=== PATIENT | female | born 1955 | race Caucasian/White ===

== ENCOUNTER 2018-08-22 19:25 | Emergency (ER) | payer MEDICARE, OTHER ==
--- OUTSIDE RECORDS SUMMARY | 2018-08-22 19:36 | XMS REPORT | Continuity of Care Document ---
:1955 Author Organization [facility] Address [address], [place] [id number] Phone Care Team Providers Name Role Phone Jaylyn Jarquin Unavailable Unavailable Allergies, Adverse Reactions, Alerts Substance Reaction Status No Known Drug Allergies Active Medications Medication Instructions Dosage Effective Dates Status Comments (start - stop) MYCOPHENOLATE TAKE 2 TABLETS BY 1000 MG - Active MOFETIL 500 MG MOUTH TWICE DAILY TABLET diclofenac 3 % apply by topical 0.00 - Active topical gel route 2 times every day to lesion areas Lexapro 20 mg tablet take 1 tablet by 20 MG - Active oral route every day Lamictal XR 300 mg take 1 tablet by 300 MG - Active tablet,extended oral route 2 times release every day swallowing whole. Do not crush, chew and/or divide. calcitriol 0.25 mcg take 1 capsule by 0.25 MCG - Active capsule oral route 2 times every week Vitamin D3 5,000 take 1 by Oral 1 - Active unit tablet route every day Linzess 145 mcg take 1 capsule by - Active capsule oral route every day on an empty stomach at least 30 minutes before 1st meal of the day swallowing whole. Do not break, chew and/or open. omeprazole 20 mg take 1 by Oral 1 - Active tablet,delayed route 2 times every release day METOPROLOL TARTRATE take 1 tablet by Not Available - Active (unknown strength) oral route every day Dilantin Extended take 1 capsule 100 MG - Active 100 mg Cap (100MG) by oral route 3 times every day Problems Condition Effective Dates Clinical Status Comments (start - stop) Body mass index (BMI) - 27.0-27.9, adult Systemic involvement of connective tissue, unspecified Other computer terminal operator (current) drug therapy Systemic involvement of connective tissue, unspecified Other computer terminal operator (current) drug therapy Pain in rt knee Osteoarthritis Systemic involvement of connective tissue, unspecified Pain in rt knee Trochanteric bursitis of rt hip Osteoarthritis Systemic involvement of connective tissue, unspecified Other longterm (current) drug therapy Pain in right finger(s) Pain in left finger(s) Systemic involvement of connective tissue, unspecified Other intervertebral disc degeneration, thoracic region Osteoarthritis Systemic involvement of connective tissue, unspecified Other longterm (current) drug therapy Thrombocytopenia, unspecified Systemic involvement of connective tissue, unspecified Other computer terminal operator (current) drug therapy Systemic involvement of connective tissue, unspecified Other longterm (current) drug therapy Dry skin dermatitis Systemic involvement of connective tissue, unspecified Other intervertebral disc degeneration, thoracic region Systemic involvement of connective tissue, unspecified Other intervertebral disc degeneration, thoracic region Other longterm (current) drug therapy Dysuria Systemic involvement of connective tissue, unspecified Other computer terminal operator (current) drug therapy Other intervertebral disc degeneration, thoracic region Systemic involvement of connective tissue, unspecified Other longterm (current) drug therapy Systemic involvement of connective tissue, unspecified Other longterm (current) drug therapy Low back pain Systemic involvement of connective tissue, unspecified Thrombocytopenia, unspecified Other longterm (current) drug therapy Other intervertebral disc degeneration, thoracic region Systemic involvement of connective tissue, unspecified Other computer terminal operator (current) drug therapy Systemic involvement of connective tissue, unspecified Other computer terminal operator (current) drug therapy Systemic involvement of connective tissue, unspecified Other computer terminal operator (current) drug therapy Pain in left shoulder Generalized anxiety - Active Mapped from [facility] Chronic disorder Conditions table on 11/30/2014 by the ICD9 to SNOMED Bulk Mapping Utility. The mapped diagnosis code was Generalized anxiety disorder, 300.02, added by Jaspal ISIDRO, with responsible provider Jaspal Flores PA-C. Onset date 04/24/2013; last addressed on 04/24/2013. High risk drug monitoring - Active Mapped from [facility] Chronic status Conditions table on 01/31/2015 by the ICD9 to SNOMED Bulk Mapping Utility. The mapped diagnosis code was Therapeutic drug monitoring, V58.69, added by Jaspal ISIDRO, with responsible provider Jaspal ISIDRO. Onset date 10/01/2012; last addressed on 04/01/2014. Degeneration of - Active Mapped from [facility] Chronic intervertebral disc Conditions table on 11/30/2014 by the ICD9 to SNOMED Bulk Mapping Utility. The mapped diagnosis code was Degeneration of intervertebral disc, site unspecif, 722.6, added by Jaspal ISIDRO, with responsible provider Jaspal ISIDRO. Onset date 10/01/2012; last addressed on 10/01/2012. Disorder of connective - Active Mapped from [facility] Chronic tissue Conditions table on 11/30/2014 by the ICD9 to SNOMED Bulk Mapping Utility. The mapped diagnosis code was Unspecified diffuse connective tissue disease, 710.9, added by Jaspal ISIDRO, with responsible provider Jaspal ISIDRO. Onset date 10/01/2012; last addressed on 04/01/2014. Procedures Procedure Date No information Results Test Name Date and Time Measure Units Reference Range Abnormal Flag Status Comments No information Advance Directives Directive Yes / No Effective Date File Name No information Encounters Encounter Practice Location Reason(s) Diagnoses Date Provider Providers Description For Visit Copied on Encounter [facility] STRE[address] SUPERINTENDENT C [facility] 8 Jaylyn CASTILLOC, 5794 PLLC 5794 [facility], [facility], [place], [id number], [id number], [place]. tel:[phone] tel:[phone] Arthritis Arthritis Systemic [facility] involvement STREET SUPERINTENDENT C Provider: [facility] of connective 8 Jaylyn Mireles PLLC, 5794 PLLC tissue, 5794 MD, [address] [facility] unspecifiedOt [facility], her longterm [address], [address], [place], (current) [place], [place], [address]. [id number], [id number], tel:[phone] [place]. 12[address]Qjofbfb tel:[phone] tel:[phone] [facility] [phone] Provider: Patsy Cheatham, [address] [place], [address]. tel:[phone] [facility] Provider: Carlos A Lema MD, [address] [facility] [address], [place], [address]. tel:[phone] Arthritis Arthritis Systemic [facility] involvement STREET SUPERINTENDENT C Provider: Jennifer Rodriguez of [facility] 8 Jaylynestephanie Cisenrosthy PLLC, 5794 PLLC tissue, 5794 MD, 130[address] [facility], her computer terminal operator [address], [address], [place], (current) [place], [place], [place], [address]. [id number], [id number], tel:[phone] [place]. [address]Qnlhagx tel:[phone] tel:[phone] [facility] [phone] Provider: Patsy Cheatham, [address] [place], [address]. tel:[phone] ing Provider: Charmaine Moreno, [address] [place], [place] [address]y [address], [place], [address]. tel:[phone] [facility] Provider: Carlos A Lema MD, [address] [facility] [address], [place], [address]. tel:[phone] Provider: Richard Wei, [address] [place], [address]. tel:[phone] [facility] STRE[address] SUPERINTENDENT C [facility] 8 Jaylyn LaurentMinesh PLLC, 5794 PLLC [address] [facility], [address], [place], [place], [id number], [id number], [place]. tel:[phone] tel:[phone] [facility] STRE[address] SUPERINTENDENT C [facility] 8 Jaylyn LaurentMinesh PLLC, 5794 PLLC [address] [facility], [address], [place], [place], [id number], [id number], [place]. tel:[phone] tel:[phone] Arthritis Arthritis Pain in rt [facility] kneeOsteoarth STREET SUPERINTENDENT C Provider: Jennifer peck 8 Jaylyn Rios Chi PLLC, 5794 PLLC 5794 , [address] [facility], w, Road, [place], [place], [place], [address]. [id number], [id number], tel:[phone] [place]. [address]Loablau tel:[phone] tel:[phone] ing [phone] Provider: Clarke Marx MD, [address], [place], [address]. tel:[phone] ing Provider: Charmaine Moreno, [address] [facility] [address], [place], [address]. tel:[phone] ing Provider: Carlos A Lema MD, [address] [facility] [address], [place], [address]. tel:[phone] ng Provider: Richard Wei, [address] [place], [address]. tel:[phone] Arthritis Arthritis Systemic [facility] involvement STREET SUPERINTENDENT C Provider: Jennifer Sargent 8 Jaylyn Rios Chi PLLC, 5794 PLLC tissue, 57Katherine CROCKER, [address] [place] [address] [facility], in in rt [address]kw, [address], [place], kneeTrochante [place], [place], [place], [address]. [id number], of rt hip [id number], tel:[phone] [place]. [address]Fnjqfvf tel:[phone] tel:[phone] ing [phone] Provider: Clarke Marx MD, [address], [place], [address]. tel:[phone] ing Provider: Charmaine Moreno, [address] [facility] [address], [place], [address]. tel:[phone] ing Provider: Carlos A Lema MD, [address] [facility] [address], [place], [address]. tel:[phone] Provider: Richard Wei, [address] [place], [address]. tel:[phone] Arthritis Arthritis Osteoarthriti [facility] s STREET SUPERINTENDENT C [facility] 8 Jaylyn LaurentMinesh PLLC, 5794 PLLC 5794 [facility], [facility], [place], [place], [id number], [id number], [place]. tel:[phone] tel:[phone] Arthritis Arthritis Systemic [facility] involvement STREET SUPERINTENDENT C Provider: [facility] of connective 8 Jaylyn Sacha Mireles PLLC, 5794 PLLC tissue, 5794 MD, 130[address] [facility], her computer terminal operator [address], [address], [place], (current) [place], [place], [place], [place], [address]. [id number], therapyPain [id number], tel:[phone] [place] in right [place]. [address]Cnsekqc tel:[phone] finger(s)Pain tel:[phone] ing [phone] in left [id number] Provider: finger(s) Clarke Marx MD, [address], [place], [address]. tel:[phone] ing Provider: Charmaine Moreno, [address] [facility] [address], [place], [address]. tel:[phone] ing Provider: Carlos A Lema MD, [address] [facility] [address], [place], [address]. tel:[phone] ng Provider: Richard Wei, [address] [place], [address]. tel:[phone] Arthritis Arthritis Systemic Dec-2 [facility] involvement 0-201 MD Whalen. Provider: [facility] of connective 7 5794 Gabriel Chi PLLC, 5794 PLLC tissueRen MD, 130[address] [facility], her [place], Road, [place], intervertebra [place], [place], [place] [id number], [place], [address]. [id number], degeneration, [place]. tel:[phone] [place] thoracic tel:[phone] tel:[phone] regionOsteoar [phone] ing [phone] thritis Provider: Clarke Marx MD, [address] [facility], [place], [address]. tel:[phone] ing Provider: Charmaine Moreno, [address] [place], [place] [address]y [address], [place], [address]. tel:[phone] ing Provider: Carlos A Lema MD, [address] [facility] [address], [place], [address]. tel:[phone] Provider: Richard Wei, [address] [place], [address]. tel:[phone] Arthritis Arthritis Systemic Oct-0 [employer] [facility] Health involvement 9-201 JOSEPHINE Gage. Provider: [facility] of connective 7 5794 Moyock Chi PLLC, 5794 PLLC Ren licona MD, [address] [facility], her longterm [place], Road, [place], (current) [place], [place], [place] [id number], [place], [address]. [id number], therapyThromb [place]. tel:[phone] [place] ocytopenia, tel:[phone] tel:[phone] unspecified [phone] ing 455192 Provider: Clarke Marx MD, [address], [place], [address]. tel:[phone] ing Provider: Charmaine Moreno, [address] [facility] [address], [place], [address]. tel:[phone] ing Provider: Carlos A Lema MD, [address], [address]. tel:[phone] Provider: Richard Wei, [address] [place], [address]. tel:[phone] Arthritis Arthritis Systemic Aug- [employer] [facility] Health involvement PA-C Merari. Provider: [facility] of connective 7 5794 Gabriel Mireles PLLC, 5794 PLLC Ren licona MD, [address] [place] [address], [facility], [facility], [place], (current) [place], [place], drug [id number], [place], [address]. [id number], therapyBody . tel:[phone] [place] mass index tel:[phone] tel:[phone] (BMI) [phone] ing 250353 27.0-27.9, Provider: adult Clarke Marx MD, [address] [place], [address]. tel:[phone] [facility] Provider: Charmaine Moreno, [address] [facility] [address], [place], [address]. tel:[phone] ing Provider: Carlos A Lema MD, [address] [address], [place], [address]. tel:[phone] Provider: Richard Wei, [address] [place], [address]. tel:[phone] Arthritis Arthritis Systemic January- [facility] involvement PA-C Provider: Associates [facility] of connective 7 Denise Michel Moyock Chi PLLC, 5794 PLLC monae, Darryn CROCKER, [address] [facility], her computer terminal operator [place], [address], [place], (current) [place], [place], [place], [address]. [id number], therapyDry [id number], tel:[phone] [place] skin [place]. [address]Yusctdq tel:[phone] dermatitis tel:[phone] ing [phone] Provider: Clarke Marx, [address], [place], [address]. tel:[phone] ing Provider: Charmaine Moreno, [address] [facility] [address], [place], [address]. tel:[phone] ing Provider: Carlos A Lema, [facility] [address], [place], [place], [id number]. tel:[phone] Provider: Richard Wei, [address] [place] [address], [address]. tel:[phone] Arthritis Arthritis Systemic Mar-2 [facility] involvement 0-201 MD Whalen. Provider: [facility] of connective 7 5794 Gabriel Chi PLLC, 5794 PLLC tissue, Ren CROCKER, [address] [facility], [facility], her [place], Road, [place], intervertebra [place], [place], [place] [id number], [place], [address]. [id number], degeneration, [place]. tel:[phone] [place] thoracic tel:[phone] tel:[phone] region [phone] [facility] [id number] Provider: Clarke Marx, [address], [place], [address]. tel:[phone] ing Provider: Charmaine Moreno, [address] [facility] [address], [place], [address]. tel:[phone] ing Provider: Carlos A Lema, [facility] [address], [place], [place], [id number]. tel:[phone] ng Provider: Richard Wei, [address] [place], [address]. tel:[phone] Arthritis Arthritis Systemic Sajan-0 Sandra [employer] [facility] Health involvement 2-201 JOSEPHINE Shay. Provider: Jennifer Rodriguez of connective 7 5794 Gabriel Chi PLLC, 5794 PLLC tissue, Ren CROCKER, 130[address] [facility], [facility], her [place], Road, [place], intervertebra [place], [place], [place] [id number], [place], [address]. [id number], degeneration, [place]. tel:[phone] [place] thoracic tel:[phone] tel:[phone] regionOther [phone] ing 170931 longterm Provider: (current) Clarke Marx, [address] therapyDysuri [address], [place], [address]. tel:[phone] ing Provider: Charmaine Moreno, [address] [place], [place] [address]y [address], [place], [address]. tel:[phone] ing Provider: Carlos A Lema, [facility] [address], [place], [place], [id number]. tel:[phone] Provider: Richard Wei, [address] [place], [address]. tel:[phone] Arthritis Arthritis Systemic Jun- Sandra Consulting [facility] Health involvement 7-201 JOSEPHINE Shay. Provider: Jennifer Rodriguez of connective 6 5794 [facility] Chi [facility], 5794 PLLC Ren licona MD, [address] [facility], [facility], her longterm [place], Road, [place], (current) [place], [place], [place] [id number], [place], [address]. [id number], therapyOther [place]. tel:[phone] [place] intervertebra tel:[phone] tel:[phone] l disc [phone] ing 983120 degeneration, Provider: thoracic Clarke gauthier Malak, [address], [place], [address]. tel:[phone] ing Provider: Charmaine Moreno, [address] [facility] [address], [place], [address]. tel:[phone] ing Provider: Carlos A Lema, [facility] [address] H, [place], [place], [id number]. tel:[phone] Provider: Richard Wei, [address] [place], [address]. tel:[phone] Arthritis Arthritis Systemic Apr-0 [employer] [facility] Health involvement 1 JOSEPHINE Shay. Provider: Associates Associates of connective 6 5794 Gabriel [facility], 5794 PLLC tissue, Ren CROCKER, [address] [place] [address], her computer terminal operator [place], [facility], [place], (current) [place], [place], [place] [id number], [place], [address]. [id number], . tel:[phone] [place] tel:[phone] tel:[phone] ing [id number] Provider: Clarke Marx, [address], [place], [address]. tel:[phone] ing Provider: Charmaine Moreno, [address] [facility] [address], [place], [address]. tel:[phone] ing Provider: Carlos A Lema, [facility] 2 H, [place], [place], [id number]. tel:[phone] Provider: Richard Wei, [address] [place], [address]. tel:[phone] Arthritis Arthritis Systemic January- [employer] [facility] Health involvement 0201 JOSEPHINE Shay. Provider: Associates Associates of connective 6 5794 Gabriel Chi PLLC, 5794 PLLC tissueRen MD, 1304 [facility], her longterm [place], [facility], [place], (current) [place], [place], [place] [id number], [place], [address]. [id number], therapyLow [place]. tel:[phone] [place] back pain tel:[phone] tel:[phone] ing 149871 Provider: Clarke Marx, [address] [facility], [place], [address]. tel:[phone] ing Provider: Charmaine Moreno, [address] [facility] [address], [place], [address]. tel:[phone] ing Provider: Carlos A Lema, [facility] [address] H, [place], [place], [id number]. tel:[phone] Provider: Richard Wei, [address] [place] [address], [address]. tel:[phone] Arthritis Arthritis Systemic Mar-2 [facility] involvement 3-201 JOSEPHNIE Gage. Provider: Associates Associates of connective 6 5794 M[facility]ock Chi PLLC, 5794 PLLC tissue, [facility] CROCKER, 130[address] [facility], [facility], [facility], [facility], [place], a, [place], [place], [place], unspecifiedOt [id number], [place], [address]. [id number], her computer terminal operator [place]. tel:[phone] [place] (current) tel:+ [phone] tel:[phone] drug therapy [phone] ing 188143 Provider: Clarke Marx, [address] [facility], [place], [address]. tel:[phone] ing Provider: Charmaine Moreno, [address] [facility] [address], [place], [address]. tel:[phone] ing Provider: Carlos A Lema, [facility] [address], [place], [place], [id number]. tel:[phone] Provider: Richard Wei, [address] [place], [address]. tel:[phone] Arthritis Arthritis Other Sajan-2 [facility] Health intervertebra 1 JOSEPHINE Gage. Provider: Jennifer Rodriguez l disc 6 5794 Gabriel [facility], 5794 PLLC Ren osborne MD, 1304 [facility] thoracic [place], [facility], regionSystemi [place], Road, [place], c involvement [place], [place], [place], [place] connective [id number], [place], [address]. [id number], tissue, [place]. tel:[phone] US unspecifiedOt tel:[phone] tel:[phone] her longterm [phone] ing 617454 (current) Provider: drug therapy Clarke Marx, [address], [place], [address]. tel:[phone] ing Provider: Charmaine Moreno, [address] [place], [place] [address]y [address], [place], [address]. tel:[phone] ing Provider: Carlos A Lema, [facility] [address], [place], [place], [id number]. tel:[phone] Provider: Richard Wei, [address] [place], [address]. tel:[phone] Arthritis Arthritis Systemic Jul- [facility] Consulting [facility] Health involvement 0-201 JOSEPHINE Gage. Provider: Jennifer Rodriguez of connective 5 5794 [facility], 5794 PLLC Ren licona MD, [address] [facility] [place], [facility], her computer terminal operator [place], [facility], [place], (current) [place], [place], [place], drug [place] [id number], [place], [address]. [id number], [place]. tel:[phone] [place] tel:[phone] tel:[phone] ing 695879 Provider: Clarke Marx, [address], [place], [address]. tel:[phone] ing Provider: Charmaine Moreno, [address] [facility] [address], [place], [address]. tel:[phone] ing Provider: Carlos A Lema, [facility] [address], [place], [place], [id number]. tel:[phone] ng Provider: Richard Wei, [address] [place], [address]. tel:[phone] Arthritis Arthritis Systemic Oct- [employer] [facility] involvement 5 JOSEPHINE Gage. Provider: Jennifer Rodriguez of [facility] 5 5794 Gabriel Mireles PLL[facility], 5794 PLLC tissue, Ren CROCKER, [address] [place] [address], her computer terminal operator [place], [facility], [place], (current) [place], [place], [place] [id number], [place], [address]. [id number], therapyPain [place]. tel:[phone] [place] in left tel:[phone] tel:[phone] shoulder [phone] ing 578393 Provider: Clarke Marx, [address] [facility], [place], [address]. tel:[phone] ing Provider: Charmaine Moreno, [address] [facility] [address], [place], [address]. tel:[phone] ing Provider: Carlos A Lema, [facility] [address], [place], [place], [id number]. tel:[phone] ng Provider: Richard Wei, [address] [place], [address]. tel:[phone] Arthritis Ar[facility]ritis [facility] JOSEPHINE Gage. Provider: Associates Associates 5 5794 Gabriel Cisnerosthy PLLC, 5794 PLLC Ren CROCKER, [address] [place] [address], [facility], [place], [facility], [place], [place], [place], [id number], [place], [address]. [id number], . tel:[phone] [place] tel:[phone] tel:[phone] ing 395414 Provider: Clarke Marx, [address] [place] [address], [place], [address]. tel:[phone] ing Provider: Charmaine Moreno, [address] [facility] [address], [place], [address]. tel:[phone] ing Provider: Carlos A Lema, [facility] [address], [place], [place], [id number]. tel:[phone] Provider: Richard Wei, [address] [place] [address], [address]. tel:[phone] Arthritis Arthritis Oct-1 [facility] 0-201 PA-C Merari. Provider: [facility] 4 [address] Gabriel Mireles [facility], 5794 PLL Ren CROCKER, [address] [place] [address], [place], [place], [id number], [place], [address]. [id number], . tel:[phone] tel:[phone] tel:[phone] ing [phone] Provider: Clarke Marx, [address] [place] [address], [place], [address]. tel:[phone] ing Provider: Charmaine Moreno, [address] [facility] [address], [place], [address]. tel:[phone] ing Provider: Carlos A Lema, [facility] [address], [place], [place], [id number]. tel:[phone] Provider: Richard Wei, [address] [place], [address]. tel:[phone] Arthritis Arthritis Oct-1 [facility] [address] SUPERINTENDENT-C Provider: [facility] 3 Carol. [facility], 5[address] [facility] Nephrology [facility], Hypertension [place], [place], [facility] [address] [place], [place], [place] , [place], [id number], [place], [id number], [place], [address]. [place] tel:[phone] tel:[phone] tel:[phone] [id number] ing Provider: Clarke Marx, [address] [facility], [place], [address]. tel:[phone] ing Provider: Charmaine Moreno, [address] [facility] [address], [place], [address]. tel:[phone] ing Provider: Carlos A Lema, [facility] [address], [place], [place], [id number]. tel:[phone] Provider: Richard Wei, [address] [place] [address], [address]. tel:[phone] Arthritis Arthritis January-0 [facility] 3-201 JOSEPHINE Shay. Provider: [facility] 3 5794 [facility], 5794 [facility] Nephrology [facility], Hypertension [place], [place], [facility] [address] [place], [place], [place] , [place], [id number], [place], [id number], [place], [address]. [place] tel:[phone] tel:[phone] tel:[phone] [id number] ing Provider: Clarke Marx, [address] [facility], [place], [address]. tel:[phone] ing Provider: Charmaine Moreno, [address] [facility] [address], [place], [address]. tel:[phone] ing Provider: Carlos A Lema, [facility] [address], [place], [place], [id number]. tel:[phone] ng Provider: Richard Wei, [address] [place], [address]. tel:[phone] Arthritis Arthritis [facility] 8-201 MD Whalen. Provider: [facility] 2 5794 Richard Wei, [facility], [address], [place], [place], [place], [facility], [place], [address]. [place], [id number], tel:[phone], . [address] tel:[phone] tel:[phone] Arthritis Arthritis [facility] 1- JOSEPHINE Gage. Provider: Jennifer Rodriguez 1 5794 [facility], 5794 PLLC [facility] 6 [facility], [place], [place], [place], [facility], [place], [address]. [place], [id number], tel:[phone], . [address] [place] tel:[phone] tel:[phone] Arthritis Arthritis [facility] 6 JOSEPHINE Gage. Provider: Jennifer Rodriguez 1 5794 [facility], [address], [place], [place], [place], [facility], [place], [address]. [place], [id number], tel:[phone], . [address] tel:[phone] tel:[phone] Family History Family Member Diagnosis Age At Onset Grandmother Father Immunizations Vaccine Date Status Comments Never had Zoster administered Source: New Immunization Record Refused Flu vaccine administered Source: New Immunization Record Refused Flu vaccine administered Source: New Immunization Record Never had administered Source: Source Unspecified Payers Payer name Insurance type Covered green party ID Authorization(s) Medicare MB [id number] [employer] No Referral Required [id number] Social History Type Description Quantity Date Captured Comments Sex Female Vital Signs Date / Height Weight BMI Pulse Blood Temperature Respiratory Body Head BMI Pulse Inhaled Time: Rate Pressure Rate Surface Circumference percentile Ox Ox Area No information Chief Complaint And Reason For Visit No information Reason For Referral Reason For Referral No information Plan Of Treatment Date Type Action Status Goal Visual Field Exam. Due on due Goal Visual Field Exam. Due on due Goal Visual Field Exam. Due on due Goal Visual Field Exam. Due on due Goal Visual Field Exam. Due on due Goal Visual Field Exam. Due on due Goal Visual Field Exam. Due on due Goal Visual Field Exam. Due on due Goal Visual Field Exam. Due on due Goal Visual Field Exam. Due on due Goal Lifestyle education regarding diet completed Goal Visual Field Exam. Due on due Goal Visual Field Exam. Due on due Goal Visual Field Exam. Due on due Goal Visual Field Exam. Due on due Goal Visual Field Exam. Due on due Goal Visual Field Exam. Due on due Goal Visual Field Exam. Due on due Goal Visual Field Exam. Due on due Goal Visual Field Exam. Due on due Goal Visual Field Exam. Due on due Goal Visual Field Exam. Due on due Goal Visual Field Exam. Due on due Referral Ordered: ordered *KNEE X-RAY, 1 OR 2 VIEWS Referral Ordered: ordered FLUOROSCOPE ASP/INJ Right hip Appointment date/timeframe: 11/06/2017 Referral Ordered: ordered *THORACIC SPINE X-RAY, 3 VIEWS Referral Ordered: ordered *SHOULDER X-RAY, COMPLETE, 2 VIEW History Of Present Illness Encounter Date Complaint History Of Present Illness No information Functional Status Date Functional Assessment No information Medications Administered Medication Instructions Dosage Effective Dates (start - stop) Status Comments No information Instructions Date Instruction Additional Information Post injection care reviewed, instructions given Avoid sun and use high SPF sunblock Discussed importance of holding DMARDs/ biologics if patient develops an infection and to notify the treating physician Lifestyle education regarding diet Related to Body mass index ( BMI) 27.0-27.9, adult Discussed importance of holding DMARDs/ biologics if patient develops an infection and to notify the treating physician Stretching Labs ordered to check disease activity. Reviewed importance of compliance/adherence to medications prescribed Avoid live vaccines Risks/benefits of medications reviewed Labs ordered to check blood counts, liver and kidney functions to monitor safety of medication. Discussed / Reviewed Labs Patient plan printed and given along with recommendations call if symptoms worsen maintain adequate water intake every day Reviewed importance of compliance/adherence to medications prescribed Avoid live vaccines Risks/benefits of medications reviewed Discussed importance of holding DMARDs/ biologics if patient develops an infection and to notify the treating physician Labs ordered to check disease activity. Labs ordered to check blood counts, liver and kidney functions to monitor safety of medication. Discussed / Reviewed Labs Patient plan printed and given along with recommendations call if symptoms worsen maintain adequate water intake every day Reviewed importance of compliance/adherence to medications prescribed Avoid live vaccines Risks/benefits of medications reviewed Discussed importance of holding DMARDs/ biologics if patient develops an infection and to notify the treating physician Labs ordered to check disease activity. Labs ordered to check blood counts, liver and kidney functions to monitor safety of medication. Discussed / Reviewed Labs Patient plan printed and given along with recommendations call if symptoms worsen maintain adequate water intake every day Discussed / Reviewed Labs Patient plan printed and given along with recommendations call if symptoms worsen maintain adequate water intake every day Reviewed importance of compliance/adherence to medications prescribed Diet: avoid alcohol Avoid live vaccines Risks/benefits of medications reviewed Avoid sun and use high SPF sunblock Discussed importance of holding DMARDs/ biologics if patient develops an infection and to notify the treating physician Stretching Labs ordered to check disease activity. Labs ordered to check blood counts, liver and kidney functions to monitor safety of medication. Discussed importance of holding DMARDs/ biologics if patient develops an infection and to notify the treating physician Avoid live vaccines Avoid sun and use high SPF sunblock Discussed importance of holding DMARDs/ biologics if patient develops an infection and to notify the treating physician Reviewed importance of compliance/adherence to medications prescribed Risks/benefits of medications reviewed Reviewed importance of compliance/adherence to medications prescribed Risks/benefits of medications reviewed Discussed importance of holding DMARDs/ biologics if patient develops an infection and to notify the treating physician
[2018-08-22 19:52] VITALS: BP 136/75
--- NOTE | 2018-08-22 20:07 | UC ---
UC General HPI - HPI Summary HPI Summary: PT C/O 3 DAY HX INCREASING L LOWER ABDOMINAL PAIN THAT RADIATES INTO HER L BACK. + NAUSEA, FEVER AND LOSS OF APPETITE. WORSE WITH MOVEMENT. NO DIARRHEA. NO HX IBD OR DIVERTICULAR DZ. SOME URINARY FREQUENCY. HX HEMATURIA. - History of Current Complaint Chief Complaint: UCGeneralIllness Stated Complaint: ABDOMINAL PAIN/FEVER/CHILLS Time Seen by Provider: 08/22/18 19:57 Hx Obtained From: Patient, Family/Web Interface Developer Onset/Duration: Gradual Onset Timing: Constant Pain Intensity: 0 Aggravating: ANY MOVEMENT Associated Signs & Symptoms: Positive: Abdominal Pain, Fever, Nausea. Negative : Diarrhea, Vomiting - Allergy/Home Medications Allergies/Adverse Reactions: Allergies Allergy/AdvReac Type Severity Reaction Status Date / Time amoxicillin Allergy Rash Verified 08/22/18 19:44 sulfamethoxazole Allergy Hives Verified 08/22/18 19:44 [From Bactrim] trimethoprim [From Bactrim] Allergy Hives Verified 08/22/18 19:44 avoids NSAIDS Allergy Unknown Uncoded 08/22/18 19:44 Reaction Details Home Medications: Home Medications Escitalopram (NF) [Lexapro 5 mg (NF)] 1 tab DAILY 08/22/18 [History Confirmed ] Gabapentin CAP(*) [Neurontin 300 CAP(*)] 1 tab TID 08/22/18 [History Confirmed 08/22/18] Linaclotide (NF) [Linzess (NF)] 1 tab DAILY 08/22/18 [History Confirmed 08/22/18 ] Omeprazole CAP* [Prilosec CAP* 20 MG] 1 tab DAILY 08/22/18 [History Confirmed ] Polyethylene Glycol 3350* [Miralax*] 1 packet DAILY 08/22/18 [History Confirmed 08/22/18] lamoTRIgine TAB(*) [Lamictal TAB(*)] 300 mg BID 08/22/18 [History Confirmed ] PMH/Surg Hx/FS Hx/Imm Hx - Additional Past Medical History Additional PMH: Lupus, pain from Lupus, One kidney from , 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 Cardiovascular History: Hypertension GI/ History: Gastroesophageal Reflux Neurological History: Seizures - Surgical History Surgical History: Yes Surgery Procedure, Year, and Place: Craniotomy for miningioma, 2009, [place] 1990 - Family History Known Family History: Positive: Hypertension - Social History Alcohol Use: None Substance Use Type: None Smoking Status (MU): Never Smoked Tobacco - Immunization History Most Recent Influenza Vaccination: Not the Season Vaccination Up to Date: Yes Review of Systems All Other Systems Reviewed And Are Negative: Yes Constitutional: Positive: Fever Skin: Positive: Negative Eyes: Positive: Negative ENT: Positive: Negative Respiratory: Positive: Negative Cardiovascular: Positive: Negative Gastrointestinal: Positive: Abdominal Pain, Nausea Genitourinary: Positive: Hematuria - microscopic, Frequency Motor: Positive: Negative Neurovascular: Positive: Negative Musculoskeletal: Positive: Arthralgia - chronic Neurological: Positive: Negative Psychological: Positive: Negative Physical Exam Triage Information Reviewed: Yes Appearance: Ill-Appearing - but non toxic Vital Signs: Initial Vital Signs Temp 101.1 F 08/22/18 19:48 Pulse 103 08/22/18 19:48 Resp 16 08/22/18 19:48 BP 136/75 08/22/18 19:48 Pulse Ox 99 08/22/18 19:48 Vital Signs Reviewed: Yes Eyes: Positive: Conjunctiva Clear ENT: Positive: Pharynx normal. Negative: Nasal congestion Neck: Positive: Supple, Nontender, No Lymphadenopathy Respiratory: Positive: Lungs clear, Normal breath sounds Cardiovascular: Positive: RRR, No Murmur. Negative: Tachycardia Abdomen Description: Positive: Other: - Hypoactive BS. No distension. Soft. Tender in LLQ with guarding and rebound on deep palpation. No mass or HSM. No CVA tenderness Musculoskeletal: Positive: ROM Intact Neurological: Positive: Alert Psychological: Positive: Age Appropriate Behavior Skin Exam: Normal Course/Dx - Course Course Of Treatment: [facility] ER CALLED. HX AND PE D/W DR MADERA INCLUDING LLQ ABDOMINAL PAIN WITH PERITONEAL SIGNS, FEVER, NAUSEA AND ANOREXIA. ALSO ADVISED OF ONLY 1 KIDNEY AND IT HAS 40% FUNCTION. - Differential Dx - Multi-Symptom Differential Diagnoses: Other - bowel and renal pathology. most concerning for possible diverticular dz. - Diagnoses Provider Diagnosis: Acute abdominal pain in left lower quadrant Discharge - Sign-Out/Discharge Documenting (check all that apply): Patient Departure All imaging exams completed and their final reports reviewed: No Studies - Discharge Plan Condition: Stable Disposition: TRANS [facility] Referrals: Disha Pringle MD [Primary Care Provider] - Additional Instructions: LEAVE HERE AND GO DIRECTLY TO THE [facility] ER DISCUSSED - Billing Disposition and Condition Condition: STABLE Disposition: Trans Higher Lvl of Care Fac
== END 2018-08-22 20:33 | disposition short-term general hospital (02) ==
LOC: UCCORT 19:25
DX: R10.32 Left lower quadrant pain (principal); Z88.0 Allergy status to penicillin; Z88.1 Allergy status to other antibiotic agents
CPT/HCPCS: 81003; 87077; 87086; 99212; G0463

== ENCOUNTER 2019-03-19 10:22 | Emergency (ER) | payer MEDICARE, OTHER ==
[2019-03-19 10:43] VITALS: BP 127/74
--- NOTE | 2019-03-19 11:13 | UC ---
Respiratory Complaint HPI - HPI Summary HPI Summary: cough x 10 days cough is dry and harsh , worse at night and when lying down nothing makes it better no fever, no chills, + body aches, has sore throat due to coughing no runny nose, no wheezing or sob - History of Current Complaint Chief Complaint: UCGeneralIllness Stated Complaint: ST, COUGH Time Seen by Provider: 03/19/19 10:43 Hx Obtained From: Patient Onset/Duration: Gradual Onset, Lasting Days - 10, Still Present Timing: Constant Severity Initially: Moderate Severity Currently: Moderate Pain Intensity: 0 Character: Cough: Nonproductive Aggravating Factors: Exertion, Deep Breaths, Recumbent Position Alleviating Factors: Nothing Associated Signs And Symptoms: Negative: Dyspnea, Fever, Chills, Pleuritic Chest Pain, Wheezing, Hemoptysis, Dizziness, Calf Pain, Calf Swelling, Edema, URI, Nasal Congestion - Allergies/Home Medications Allergies/Adverse Reactions: Allergies Allergy/AdvReac Type Severity Reaction Status Date / Time amoxicillin Allergy Rash Verified 08/22/18 19:44 sulfamethoxazole Allergy Hives Verified 08/22/18 19:44 [From Bactrim] trimethoprim [From Bactrim] Allergy Hives Verified 08/22/18 19:44 avoids NSAIDS Allergy Unknown Uncoded 08/22/18 19:44 Reaction Details PMH/Surg Hx/FS Hx/Imm Hx - Additional Past Medical History Additional PMH: SEIZURES DEPRESSION/ANXIETY lupus kidney disease Cardiovascular History: Hypertension - Surgical History Surgical History: Yes Surgery Procedure, Year, and Place: Craniotomy for miningioma, 2008, [place] [facility], 1981 1990 - Family History Known Family History: Positive: Hypertension - Social History Alcohol Use: None Substance Use Type: None Smoking Status (MU): Never Smoked Tobacco - Immunization History Most Recent Influenza Vaccination: Not the Season Vaccination Up to Date: Yes Review of Systems All Other Systems Reviewed And Are Negative: Yes Constitutional: Positive: Negative Skin: Positive: Negative Eyes: Positive: Negative ENT: Positive: Sore Throat Respiratory: Positive: Cough Cardiovascular: Positive: Negative Is Patient Immunocompromised?: No Physical Exam Triage Information Reviewed: Yes Appearance: Well-Appearing, No Pain Distress, Well-Nourished Vital Signs: Initial Vital Signs Temp 98.5 F 03/19/19 10:36 Pulse 77 06/27/19 10:36 Resp 18 03/19/19 10:36 BP 127/74 03/19/19 10:36 Pulse Ox 99 03/19/19 10:36 Vital Signs Reviewed: Yes Eye Exam: Normal Eyes: Positive: Conjunctiva Clear ENT: Positive: Normal ENT inspection, Hearing grossly normal, Pharynx normal Neck: Positive: Supple, Nontender, No Lymphadenopathy Respiratory: Positive: Chest non-tender, Lungs clear, Normal breath sounds Cardiovascular: Positive: RRR, No Murmur, Pulses Normal Skin Exam: Normal Respiratory Course/Dx - Differential Dx/Diagnosis Provider Diagnosis: Bronchitis Discharge - Sign-Out/Discharge Documenting (check all that apply): Patient Departure All imaging exams completed and their final reports reviewed: No Studies - Discharge Plan Condition: Stable Disposition: HOME Prescriptions: Codeine Phosphate/Guaifenesin [Cheratussin AC] 10 ml PO Q8H PRN #120 ml MDD 30 ml PRN Reason: Cough DOXYcycline CAP(*) [DOXYcycline 100MG CAP(*)] 100 mg PO BID #20 cap Patient Education Materials: Acute Bronchitis (ED) Referrals: Disha Pringle MD [Primary Care Provider] - If Needed - Billing Disposition and Condition Condition: STABLE Disposition: Home
== END 2019-03-19 11:01 | disposition home or self-care (01) ==
LOC: UCCORT 10:22
DX: J40 Bronchitis, not specified as acute or chronic (principal); Z88.0 Allergy status to penicillin; Z88.1 Allergy status to other antibiotic agents; I10 Essential (primary) hypertension
CPT/HCPCS: 99212; G0463

== ENCOUNTER 2019-11-23 16:28 | Emergency (ER) | payer MEDICARE, OTHER ==
--- OUTSIDE RECORDS SUMMARY | 2019-11-23 18:13 | XMS REPORT | Continuity of Care Document ---
:1955 External Reference #:[id number] Author Name Peyton Mcmahon, Address [address] [place] [address] Care Team Providers Name Role Phone Gabriel Mireles M.D. 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 Other pancytopenia Peyton Mcmahon DO Onset: 02/11/2017 Systemic lupus erythematosus Peyton Mcmahon DO Onset: 10/28/2019 Anemia Peyton Mcmahon DO Onset: 10/28/2019 Heartburn Jeremías Valenzuela MD Onset: 06/12/2017 Screening for malignant neoplasm of colon Jeremías Valenzuela MD Onset: 06/12/2017 Constipation Jeremías Valenzuela MD Onset: 06/12/2017 Social History Type Date Description Comments Sex Unknown Smokeless Tobacco Never Used Smokeless Tobacco ETOH Use Denies alcohol use Tobacco Use Start: Unknown Patient denies history of smoking Recreational Drug Use Denies Drug Use Smoking Status Reviewed: 10/28/19 Patient denies history of smoking Allergies, Adverse Reactions, Alerts Active Allergies Reaction Severity Comments Date Amoxil Rash 02/11/2017 Medications Active Medications SIG Qnty Indications Ordering Provider Date Mycophenolate Mofetil 3 caps twice a Unknown 250mg day Capsules Metoprolol Succinate ER 1 by mouth every Unknown day 25mg Tablets ER 24HR Calcitriol 1 by mouth every Unknown 0.25mcg Capsules day Dilantin 3 tabs every day Unknown 100mg Capsules Vitamin D3 1 by mouth every Unknown 2000Unit day Capsules Cellcept 3 tabs twice a Unknown 250mg Capsules day Gabapentin Unknown 300mg Capsules Escitalopram Oxalate TK 1 T PO qd Unknown 20mg Tablets Lamotrigine Take 1 Tablet By Unknown 100mg Tablets Mouth Twice A Day Medications Administered in Office Medication SIG Qnty Indications Ordering Provider Date Vitamin B12 Injection 1000 Oncology Nurse 03/04/2017 mcg/Ml Injection Vitamin B12 Injection 1000 Peyton Mcmahon DO 02/19/2017 mcg/Ml Injection Immunizations Description No Information Available Vital Signs Date Vital Result Comment 10/28/2019 3:39pm BP Systolic 108 mmHg BP Diastolic 78 mmHg Body Temperature 99.5 F Heart Rate 81 /min Respiratory Rate 20 /min Height 65 inches 5'5" Weight 170.00 lb BMI (Body Mass Index) 28.3 kg/m2 BSA (Body Surface Area) 1.85 m2 Hume body weight in kilograms 57 kg O2 % BldC Oximetry 98 % 06/12/2017 9:32am BP Systolic Sitting Left Arm 130 mmHg BP Diastolic Sitting Left Arm 84 mmHg Heart Rate 58 /min Respiratory Rate 16 /min Height 65 inches 5'5" Weight 169.00 lb BMI (Body Mass Index) 28.1 kg/m2 BSA (Body Surface Area) 1.84 m2 Hume body weight in kilograms 57 kg Results Test Acquired Date Facility Test Result H/L Range Note CBC 10/28/2019 [facility] White Blood 4.2 K/uL Normal 3.1-10.7 1 W/Automated [address] [place] [address] [phone] Red Blood Count 3.47 M/uL Low 3.90-5.40 Hemoglobin 10.6 gm/dL Low 11.6-15.8 Hematocrit 32.1 % Low 36.0-46.1 Mean Cell Volume 92.5 fl Normal 80.9-99.0 Mean Corpuscular HGB 30.5 pg Normal 25.9-32.7 Mean Corpuscular HGB Conc 33.0 g/dL Normal 30.8-34.3 Platelet Count 150 K/uL Low 155-360 Red Cell Distri Width SD 43.0 fl Normal 36-47 Red Cell Distri Width %CV 12.8 % Normal 11.7-14.4 Mean Platelet Volume 9.4 fl Normal 8.9-12.4 Neut% 61.4 % Normal 40.4-72.8 Lymph % 26.7 % Normal 20.0-42.0 Early % 9.7 % Normal 4.3-13.2 Eo% 1.2 % Normal 0.0-6.6 Bas% 0.5 % Normal 0.0-1.1 Immature Grans 0.5 % Normal 0.0-5.0 NRBC % 0.0 /100WBC < 10/ 100 WBC Neut# 2.61 K/uL Normal 1.8-7.0 Lymph # 1.13 K/uL Normal 1.0-4.0 Early # 0.41 K/uL Normal 0.3-0.9 Eos # 0.05 K/uL Normal 0.0-0.5 Baso # 0.02 K/uL Normal 0.0-0.1 Immature Grans Absolute 0.02 K/uL NRBC # 0.00 K/uL Comprehensive 10/28/2019 [facility] Glucose 85 mg/dL Normal 74-106 Metabolic Panel [address] [place] [address] [phone] BUN 17 mg/dL Normal 7-18 Creatinine 1.5 mg/dL High 0.6-1.3 Glom Filtration Rate, Estimate 37 mL/min >60 If 45 mL/min >60 2 BUN/Creat 11.3 ratio Sodium 133 mmol/L Low 136-145 Potassium 4.4 mmol/L Normal 3.5-5.1 Chloride 102 mmol/L Normal 98-107 Carbon Dioxide 29 mmol/L Normal 21-32 Anion Gap 2 mEq/L Low 8-16 Calcium 8.8 mg/dL Normal 8.5-10.1 Total Protein 7.2 g/dL Normal 6.4-8.2 Albumin 3.9 g/dL Normal 3.4-5.0 Globulin 3.3 g/dL Normal 1.9-4.3 Alb/Glob 1.2 ratio Bilirubin,Total 0.3 mg/dL Normal 0.2-1.0 Sgot/Ast 19 U/L Normal 15-37 SGPT/Alt 14 U/L Normal 12-78 Alkaline Phosphatase 126 U/L High 45-117 Iron-Tibc-%Sat 10/28/2019 [facility] Serum Iron 89 g/dL Normal 50-[address] [place] [address] [phone] Total Iron Binding Capacity 241 g/dL Low 250-450 Transferrin %Saturation 37 % Normal 12-57 Laboratory test 10/28/2019 [facility] Ferritin 63 ng/mL Normal 8-[address] [place] [address] [phone] Vitamin B12 And 10/28/2019 [facility] Vitamin B12 296 pg/mL Normal 193-[address] [place] [address] [phone] Folic Acid 8.1 ng/mL Normal 3.1-17.5 Laboratory test 10/28/2019 [facility] Vitamin 29.6 Low 30.0-100.[address] D,25-Hydroxy ng/[place] [address] [phone] Immunoglobulins 10/28/2019 [facility] Immunoglobulin [phone] A/G/M, QN, Ser [address] G,Quant,Serum mg/[place] [address] [phone] Immunoglobulin A 59 mg/dL Low 87-352 Immunoglobulin M 31 mg/dL 26-217 4 Reticulocyte 10/28/2019 [facility] Retic 36.2 pg Normal 27.9-37.0 Count,Automated [address] [place] [address] [phone] Retic % 1.5 % Normal 0.5-1.8 Absolute Retic 53 K/uL Normal 24-84 Immature Retic Fraction 7.2 % Normal 2.9-15.5 Laboratory test 10/28/2019 [facility] Thyroid 1.32 Normal 0.30-4.[address] Stim uIU/[place] [address] Hormone [phone] D61.818 E61.1 E53.9 E03.9 2 Note: Persistent reduction for 3 months or more in an eGFR <60 mL/min/1.73 m2 defines CKD. Patients with eGFR values >/=60 mL/min/1.73 m2 may also have CKD if evidence of persistent proteinuria is present. The original MDRD equation for estimated GFR is not valid for patients less than 18 years of age. Additional information may be found at www.kdoqi.org. 3 Vitamin D deficiency has been defined by the [place] [employer] and an Endocrine Society practice guideline as a level of serum 25-OH vitamin D less than 20 ng/mL (1,2). The Endocrine Society went on to further define vitamin D insufficiency as a level between 21 and 29 ng/mL (2). 1. IOM ([place] [employer]). 2010. Dietary reference intakes for calcium and D. [place]: The National Academies Press. 2. Candy MF, Jose KEN, Hi SHELTON, et al. Evaluation, treatment, and prevention of vitamin D deficiency: an Endocrine Society clinical practice guideline. JCEM. 2010; 96(4):1101-30. Performed at: RN - [facility] [address] [id number] [address] Administrator: May Crocker MD, Phone: [phone] 4 Performed at: RN - [facility] [address] [id number] [address] Administrator: May Crocker MD, Phone: [phone] Procedures Date Code Description Status 04/05/2004 11751216 Colonoscopy Completed Medical Devices Description No Information Available Encounters Description No Information Available Assessments Date Code Description Provider 10/28/2019 D64.9 Anemia Peyton Mcmahon DO 10/28/2019 M32.9 Systemic lupus erythematosus, unspecified Peyton Mcmahon DO Plan of Treatment No Information Available Functional Status Description No Information Available Mental Status Description No Information Available Referrals Description No Information Available
--- NOTE | 2019-11-23 19:29 | ED ---
Respiratory - HPI Summary HPI Summary: This patient is a 64 y/o female [facility] not [facility] well. Patient reports she was diagnosed with pneumonia 1 week ago and was started on Levofloxacin that day. She notes she has been taking Levofloxacin for 7 days now but states she feels weak and dehydrated. Additionally pt states she has shortness of breath on exertion. Per daughter, patient has not been sleeping and has dry mouth despite drinking a lot of water all day. Denies chest pain, nausea, vomiting, diarrhea, constipation. She saw her PCP, Dr. Pringle, in [place] today and referred her to the ED. PMHx includes lupus, kidney disease (only 1 functioning kidney but not on dialysis). Patient sees an oncologist for her low immune system. Denies tobacco, drug, or alcohol use. Home Medications Medication Instructions Recorded Confirmed Type Phenytoin CAP(*) [Dilantin CAP(*)] 200 mg PO BID 06/24/13 11/23/19 History Calcitriol CAP* [Rocaltrol CAP*] 0.25 mg PO DAILY 01/08/15 11/23/19 History Metoprolol Tartrate TAB* 25 mg PO QPM 01/08/15 11/23/19 History [Lopressor TAB*] Escitalopram * [Lexapro 5 mg (NF)] 5 mg PO DAILY 08/22/18 11/23/19 History Gabapentin CAP(*) [Neurontin 300 300 cap PO TID PRN 08/22/18 11/23/19 History CAP(*)] Albuterol HFA INHALER* [Ventolin 1 - 2 puff INH Q6H PRN 11/23/19 11/23/19 History HFA Inhaler*] Levofloxacin TAB* [Levaquin TAB*] 500 mg PO DAILY 11/23/19 11/23/19 History lamoTRIgine TAB(*) [LaMICtal 100 mg PO BID 11/23/19 11/23/19 History TAB(*)] - History of Current Complaint Chief Complaint: EDUpperRespComplaint Stated Complaint: SOB/FEVER PER PT Time Seen by Provider: 11/23/19 18:37 Hx Obtained From: Patient Onset/Duration: Lasting Days, Still Present Initial Severity: Moderate Pain Intensity: 0 Character: Dyspnea on Exertion Sputum Amount: None Aggravating Factor(s): Nothing Alleviating Factor(s): Nothing Associated Signs and Symptoms: SOB - Allergy/Home Medications Allergies/Adverse Reactions: Allergies Allergy/AdvReac Type Severity Reaction Status Date / Time amoxicillin Allergy Rash Verified 11/23/19 16:30 sulfamethoxazole Allergy Hives Verified 11/23/19 16:30 [From Bactrim] trimethoprim [From Bactrim] Allergy Hives Verified 11/23/19 16:30 avoids NSAIDS Allergy Unknown Uncoded 11/23/19 16:30 Reaction Details Home Medications: Home Medications Phenytoin CAP(*) [Dilantin CAP(*)] 200 mg PO BID 06/24/13 [History Confirmed 11/12] Calcitriol CAP* [Rocaltrol CAP*] 0.25 mg PO DAILY 01/08/15 [History Confirmed 11/23/19] Metoprolol Tartrate TAB* [Lopressor TAB*] 25 mg PO QPM 01/08/15 [History Confirmed 11/23/19] Escitalopram * [Lexapro 5 mg (NF)] 5 mg PO DAILY 08/22/18 [History Confirmed 11/12] Gabapentin CAP(*) [Neurontin 300 CAP(*)] 300 cap PO TID PRN 08/22/18 [History Confirmed 11/23/19] Albuterol HFA INHALER* [Ventolin HFA Inhaler*] 1 - 2 puff INH Q6H PRN 11/23/19 [ History Confirmed 11/23/19] Levofloxacin TAB* [Levaquin TAB*] 500 mg PO DAILY 11/23/19 [History Confirmed ] lamoTRIgine TAB(*) [LaMICtal TAB(*)] 100 mg PO BID 11/23/19 [History Confirmed 11/23/19] PMH/Surg Hx/FS Hx/Imm Hx Previously Healthy: No - Lupus Endocrine/Hematology History: Denies: Hx Diabetes, Hx Thyroid Disease Cardiovascular History: Reports: Hx Hypertension - ON MEDS Denies: Hx Pacemaker/ICD Respiratory History: Denies: Hx Asthma, Hx Chronic Obstructive Pulmonary Disease (COPD) GI History: Denies: Hx Ulcer History: Reports: Other Problems/Disorders - one functioning kidney, not on dialysis Denies: Hx Renal Disease Sensory History: Denies: Hx Hearing Aid Psychiatric History: Reports: Hx Panic Disorder - ANXIETY - Surgical History Surgical History: Yes Surgery Procedure, Year, and Place: Craniotomy for miningioma, 2009, [place]. C -Sections x2, 1982 1990 Infectious Disease History: No Infectious Disease History: Denies: Hx Clostridium Difficile, Hx Hepatitis, Hx Human Immunodeficiency Virus (HIV), Hx of Known/Suspected MRSA, Hx Shingles, Hx Tuberculosis, Hx Known/ Suspected VRE, Hx Known/Suspected VRSA, History Other Infectious Disease, Traveled Outside the [place] in Last 30 Days - Family History Known Family History: Positive: Hypertension - Social History Alcohol Use: None Substance Use Type: Reports: None Smoking Status (MU): Never Smoked Tobacco Review of Systems Negative: Fever ENT: Other - POSITIVE: dry mouth Negative: Chest Pain Positive: Shortness Of Breath Negative: Vomiting, Diarrhea, Nausea, Other - constipation Positive: Weakness - generalized All Other Systems Reviewed And Are Negative: Yes Physical Exam - Summary Physical Exam Summary: VITAL SIGNS: Reviewed. GENERAL: Patient is a well-developed and nourished female who is lying comfortable in the stretcher. Patient is not in any acute respiratory distress. HEAD AND FACE: No signs of trauma. No ecchymosis, hematomas or skull depressions. No sinus tenderness. EYES: PERRLA, EOMI x 2, No injected conjunctiva, no nystagmus. EARS: Hearing grossly intact. Ear canals and tympanic membranes are within normal limits. MOUTH: Oropharynx within normal limits. NECK: Supple, trachea is midline, no adenopathy, no JVD, no carotid bruit, no c- spine tenderness, neck with full ROM. CHEST: Symmetric, no tenderness at palpation LUNGS: Clear to auscultation bilaterally. No wheezing or crackles. CVS: Regular rate and rhythm, S1 and S2 present, no murmurs or gallops appreciated. ABDOMEN: Soft, non-tender. No signs of distention. No rebound, no guarding, and no masses palpated. Bowel sounds are normal. EXTREMITIES: FROM in all major joints, no edema, no cyanosis or clubbing. NEURO: Alert and oriented x 3. No acute neurological deficits. Speech is normal and follows commands. SKIN: Dry and warm Triage Information Reviewed: Yes Vital Signs On Initial Exam: Initial Vitals Temp Pulse Resp BP Pulse Ox 98.0 F 78 20 156/82 100 11/23/19 16:30 11/23/19 16:30 11/23/19 16:30 11/23/19 16:30 11/23/19 16:30 Vital Signs Reviewed: Yes Procedures - Sedation Patient Received Moderate/Deep Sedation with Procedure: No Diagnostics - Vital Signs Vital Signs Temp Pulse Resp BP Pulse Ox 11/23/19 19:18 74 128/87 100 11/23/19 19:00 77 100 11/23/19 18:40 77 100 11/23/19 17:57 97.6 F 83 18 131/68 97 11/23/19 16:30 98.0 F 78 20 156/82 100 - Laboratory Result Diagrams: 11/23/19 20:12 11/23/19 20:12 Lab Statement: Any lab studies that have been ordered have been reviewed, and results considered in the medical decision making process. - Radiology Chest XR Radiology Interpretation Completed By: Radiologist Summary of Radiographic Findings: IMPRESSION: No active cardiopulmonary disease. Dr. Edwards has reviewed this report. - EKG 20:17 Cardiac Rate: NL - at 80 bpm EKG Rhythm: Sinus Rhythm Summary of EKG Findings: EKG at 20:17 shows sinus rhythm at a rate of [address] elevations. Q waves in lead III. Low voltage EKG. This EKG was interpreted and reviewed by ED physician. Re-Evaluation - Re-Evaluation First Eval Re-Evaluation Time: 21:25 Comment: Reviewed results with patient and daughter, as well as Venkatesh Hubbard' s (NPP) recommendations. Patient will be discharged home with follow up from her oncologist. Disposition - Course Assessment/Plan: This patient is a 64 y/o female presenting to [facility] c/o not feeling well. Patient reports she was diagnosed with pneumonia 1 week ago and was started on Levofloxacin that day. She notes she has been taking Levofloxacin for 7 days now but states she feels weak and dehydrated. Additionally pt states she has shortness of breath on exertion. Per daughter, patient has not been sleeping and has dry mouth despite drinking a lot of water all day. Denies chest pain, nausea, vomiting, diarrhea, constipation. She saw her PCP, Dr. Pringle, in [place] today and referred her to the ED. PMHx includes lupus, kidney disease (only 1 functioning kidney but not on dialysis). Patient sees an oncologist for her low immune system. Denies tobacco, drug, or alcohol use. In the ED course the patient was placed in a cardiac surgeon, IV access was obtained, IV fluids were started. Past medical records reviewed. Blood test w/o a significant abnormality except for WBCs of 2, glucose is 3.1, hemoglobin 9.9, hematocrit 28, platelet count is 86. Absolute neutrophil is 1.2 , absolute lymphocytes is 0.7. Sodium is 129, chloride 97, carbon dioxide is 21 , creatinine is 1.3, calcium 8.5, AST is 52, and CRP is 9.89. CXR: No acute cardiopulmonary pathology. I discussed the case with Venkatesh DE LOS SANTOS from oncology and she recommends for the patient to continue taking antibiotics and follow-up with her oncologist at [place]. At this point the patient is hemodynamically stable, alert and oriented 3. I discussed all the findings and test results with the patient. Patient was instructed to return to the emergency room immediately if any of the symptoms return or worsen . Plan of care was discussed with the patient and understands and agrees. All questions were answered at patient satisfaction. There were no further complaints or concerns. Lung exam before discharge: CTA B/L. Good air exchange. No wheezing or crackles heard. CVS: S1 and S2 present. No murmurs appreciated. Patient is alert and oriented x 3. Patient is hemodynamically stable. Patient will be discharged home with follow up from her PCP in the next 2-3 days. - Diagnoses Provider Diagnoses: Cough, Weakness, Anemia, Thrombocytopenia - Physician Notifications Discussed Care Of Patient With: Venkatesh Hubbard Time Discussed With Above Provider: 21:23 Instructed by Provider To: Other - Discussed the case with MAGALI Cagle from oncology, who reports no further recommendations and patient is to follow up with oncology in [place]. Additionally notes patient should keep taking her antibiotics. Discharge ED - Sign-Out/Discharge Documenting (check all that apply): Patient Departure - Discharge home - Discharge Plan Condition: Stable Disposition: HOME Patient Education Materials: Weakness (ED), Anemia (ED), Thrombocytopenia (ED) , Acute Cough (ED) Referrals: Disha Pringle MD [Primary Care Provider] - Additional Instructions: FOLLOW UP WITH YOUR PRIMARY CARE PROVIDER IN 2-3 DAYS. ALSO FOLLOW UP WITH YOUR ONCOLOGIST. RETURN TO THE ED FOR ANY NEW OR WORSENING SYMPTOMS. - Billing Disposition and Condition Condition: STABLE Disposition: Home - Attestation Statements Document Initiated by Chuhcoibe: Yes Documenting Scribe: Valeria Conklin Provider For Whom Ayo is Documenting (Include Credential): Pietro Edwards MD Scribe Attestation: Valeria Adams, scribed for Pietro Edwards MD on 11/24/19 at 1523. Scribe Documentation Reviewed: Yes Provider Attestation: The documentation as recorded by the Valeria romero accurately reflects the service I personally performed and the decisions made by me, Pietro Edwards MD Status of Scribe Document: Viewed
[2019-11-23] MEDS ORDERED: NS 0.9% 1000 ML** 1,000 ML IV ONE (19:31)
[2019-11-23 20:29] LABS: ABS Lymphocytes 0.7 10^3/ul (1.0-4.8); ABS Monocytes 0.3 10^3/ul (0-0.8); ABS Neutrophils 1.2 10^3/ul (1.5-7.7); Eosinophil % 0.6 %
[2019-11-23 20:30] LABS: Hematocrit 28 % (35-47); Hemoglobin 9.9 g/dL (12.0-16.0); Mean Corpuscular HGB Conc 35 g/dL (31-36); Mean Corpuscular Hemoglobin 32 pg (27-31); Mean Corpuscular Volume 89 fL (80-97); Mean Platelet Volume 7.6 fL (7.4-10.4); Platelet Count 86 10^3/uL (150-450); Red Blood Count 3.15 10^6 /uL (3.70-4.87); Red Cell Distribution Width 14 % (10-15)
[2019-11-23 20:42] LABS: Troponin I 0.01 ng/mL (<0.03)
[2019-11-23 20:44] LABS: Albumin 4.3 g/dL (3.2-5.2); Albumin/Globulin Ratio 1.7 (1-3); BUN/Creatinine Ratio 12.3 (8-20); C Reactive Protein 9.89 mg/L (<8.01); Calcium 8.5 mg/dL (8.6-10.3); EGFR African American 49.9 (>60); EGFR Non-African American 41.2 (>60); Globulin 2.5 g/dL (2-4); Potassium 4.1 mmol/L (3.5-5.0); Total Bilirubin 0.3 mg/dL (0.2-1.0); Total Protein 6.8 g/dL (6.4-8.9)
[2019-11-23 20:45] LABS: CKMB ng/mL 1.3 ng/mL (0.6-6.3)
[2019-11-23 21:58] VITALS: BP 144/84
== END 2019-11-23 21:57 | disposition home or self-care (01) ==
LOC: ED 16:28
DX: R05 Cough (principal); R53.1 Weakness; D64.9 Anemia, unspecified; D69.6 Thrombocytopenia, unspecified; R06.09 Other forms of dyspnea; I10 Essential (primary) hypertension; F41.0 Panic disorder [episodic paroxysmal anxiety]; Z79.899 Other long term (current) drug therapy; Z88.6 Allergy status to analgesic agent; Z88.0 Allergy status to penicillin; Z88.2 Allergy status to sulfonamides
CPT/HCPCS: 36415; 71046; 80053; 82550; 82553; 83605; 83880; 84484; 85025; 86140; 87040; 93005; 96360; 99283

== ENCOUNTER 2020-07-05 06:18 | Inpatient (IN) ==
[~2020-07-05 06:18] MED LIST: Buffered Lidocaine 1% SYRIN 1 ml INTRADERM ONE; Dexamethasone IV 4 MG/ML VIAL 1 ml VIAL IV SLOW PU ONE; Lactated Ringers 1000 ml BAG 1,000 ML IV SCH
[2020-07-05] MEDS ORDERED: ROPIVACAINE 5 MG/ML 30 ML BTL (0.5%) ONE ×2 (06:51→07:36)
[2020-07-05] MEDS ORDERED: Dexamethasone IV 4 MG/ML VIAL 1 ml VIAL ONE (06:56)
[2020-07-05] MEDS ORDERED: Clindamycin 900 MG/D5W BAG 900 MG/50 ML BAG IVPB ONE (06:56)
[2020-07-05] MEDS ORDERED: Midazolam 2 mg/2 ml VIAL 1 mg/ml 2 ml VIAL (2 mg) ONE (07:14)
[2020-07-05] MEDS ORDERED: Lidocaine 2% PF 5 ML VIAL ONE ×2 (07:14→07:36)
[2020-07-05] MEDS ORDERED: Propofol 0 MG/0 ML BTL ONE (07:14)
[2020-07-05] MEDS ORDERED: fentaNYL 100 mcg/2 ml 50 MCG/ML VIAL ONE ×3 (07:14→11:03)
[2020-07-05] MEDS ORDERED: Propofol 10 MG/ML 20 ML BTL ONE (07:14)
[2020-07-05] MEDS ORDERED: Rocuronium 50 mg VIAL 10 mg/ml 5 ml VIAL (50 mg) ONE ×2 (07:19→09:03)
[2020-07-05] MEDS ORDERED: Ondansetron 4 mg VIAL 2 MG/ML 2 ml VIAL IV PRN ×2 (08:18→09:05)
[2020-07-05] MEDS ORDERED: Naloxone 0.4 mg VIAL 0.4 mg/ml 1 ml VIAL IV PRN (08:18)
[2020-07-05] MEDS ORDERED: EPHEDrine (Pressors) 50 MG/ML VIAL ONE (08:49)
[2020-07-05] MEDS ORDERED: HYDROmorphone 1 MG/1 ML SYRINGE ONE ×2 (09:01→10:50)
[2020-07-05] MEDS ORDERED: Magnesium Hydroxide LIQ 30 ML UDC PO PRN (09:05)
[2020-07-05] MEDS ORDERED: diPHENhydraMINE 25 mg TAB PO PRN (09:05)
[2020-07-05] MEDS ORDERED: Lactulose 30 ml UDC PO PRN (09:05)
[2020-07-05] MEDS ORDERED: Ondansetron ODT 4 mg TAB 4 MG TAB PO PRN (09:05)
[2020-07-05] MEDS ORDERED: diPHENhydraMINE IV 50 MG/ML 1 ml VIAL (BENADRYL) IV PRN (09:05)
[2020-07-05] MEDS ORDERED: oxyCODONE/Acetamin 5/325 mg TAB PO PRN (09:05)
[2020-07-05] MEDS ORDERED: Ondansetron 4 mg VIAL 2 MG/ML 2 ml VIAL ONE ×2 (09:34→10:50)
[2020-07-05] MEDS: HYDROmorphone 1 MG/1 ML SYRINGE IV PRN ×4 (10:51→11:10)
[2020-07-05] MEDS: fentaNYL 100 mcg/2 ml 50 MCG/ML VIAL IV PRN ×2 (11:04→11:17)
[2020-07-05] MEDS: Lactated Ringers 1000 ml BAG 1,000 ML IV SCH ×2 (12:05→20:36)
[2020-07-05] MEDS ORDERED: NS 0.9% 500 ml BAG 500 ML IV ONE (14:20)
[2020-07-05] MEDS: Clindamycin 600 MG/D5W BAG 600 MG/50 ML BAG IV SCH (15:45)
[2020-07-05] MEDS ORDERED: Lactated Ringers 500 ml BAG 500 ML IV SCH (16:00)
[2020-07-05] MEDS: Magnesium Hydroxide LIQ 30 ML UDC PO SCH (20:31)
[2020-07-05] MEDS: Morphine 2 MG/ML SYRINGE IV PRN (21:56)
[2020-07-05] MEDS: oxyCODONE/Acetamin 5/325 mg TAB PO PRN (23:03)
[2020-07-06] MEDS ORDERED: Polyethylene Glycol 3350 17 GM PACKET PO PRN (00:01)
[2020-07-06] MEDS: Clindamycin 600 MG/D5W BAG 600 MG/50 ML BAG IV SCH ×2 (00:23→07:45)
[2020-07-06] MEDS: Morphine 2 MG/ML SYRINGE IV PRN ×3 (04:49→15:03)
[2020-07-06] MEDS: oxyCODONE/Acetamin 5/325 mg TAB PO PRN ×3 (05:30→20:39)
[2020-07-06 06:12] LABS: ABS Lymphocytes 1.2 10^3/ul (1.0-4.8); ABS Neutrophils 4.9 10^3/ul (1.5-7.7); Eosinophil % 0.1 %; Hematocrit 24 % (35-47); Hemoglobin 8.3 g/dL (12.0-16.0); Lymphocyte % 16.5 %; Mean Corpuscular HGB Conc 35 g/dL (31-36); Mean Corpuscular Hemoglobin 33 pg (27-31); Mean Corpuscular Volume 95 fL (80-97); Mean Platelet Volume 7.8 fL (7.4-10.4); Platelet Count 103 10^3/uL (150-450); Red Blood Count 2.55 10^6 /uL (3.70-4.87); Red Cell Distribution Width 13 % (10-15); White Blood Count 7.2 10^3/uL (3.5-10.8)
[2020-07-06 06:34] LABS: BUN/Creatinine Ratio 16.7 (8-20); Calcium 8.5 mg/dL (8.6-10.3); EGFR African American 54.6 (>60); EGFR Non-African American 45.1 (>60); Potassium 4.4 mmol/L (3.5-5.0)
[2020-07-06] MEDS: Phenytoin 100 mg ER CAP PO SCH (07:48)
[2020-07-06] MEDS: Vitamin THERAPEUTIC TAB PO SCH (07:49)
[2020-07-06] MEDS: Magnesium Hydroxide LIQ 30 ML UDC PO SCH ×2 (07:49→20:38)
[2020-07-06] MEDS: Morphine ER 15 mg TAB ** extended release PO SCH (12:16)
[2020-07-07] MEDS: Morphine ER 15 mg TAB ** extended release PO SCH ×2 (00:26→12:39)
[2020-07-07] MEDS: oxyCODONE/Acetamin 5/325 mg TAB PO PRN (02:30)
[2020-07-07 08:52] LABS: BUN/Creatinine Ratio 15.2 (8-20); Calcium 8.8 mg/dL (8.6-10.3); EGFR African American 48.9 (>60); EGFR Non-African American 40.4 (>60); Potassium 4.4 mmol/L (3.5-5.0)
[2020-07-07 09:03] LABS: Hematocrit 21 % (35-47); Hemoglobin 7.2 g/dL (12.0-16.0); Mean Platelet Volume 8.1 fL (7.4-10.4); Platelet Count 94 10^3/uL (150-450)
[2020-07-07] MEDS: Vitamin THERAPEUTIC TAB PO SCH (09:47)
[2020-07-07] MEDS: Phenytoin 100 mg ER CAP PO SCH (09:48)
[2020-07-07] MEDS: Magnesium Hydroxide LIQ 30 ML UDC PO SCH ×2 (09:49→23:01)
[2020-07-07 16:39] LABS: Hematocrit 24 % (35-47); Hemoglobin 8.7 g/dL (12.0-16.0); Mean Platelet Volume 7.5 fL (7.4-10.4); Platelet Count 106 10^3/uL (150-450)
[2020-07-07 17:44] LABS: Phenytoin 6.1 mcg/mL (10-20)
[2020-07-07 21:00] LABS: Albumin 3.5 g/dL (3.2-5.2)
[2020-07-08 08:08] VITALS: BP 122/52
[2020-07-08] MEDS: Phenytoin 100 mg ER CAP PO SCH (08:21)
[2020-07-08] MEDS: Vitamin THERAPEUTIC TAB PO SCH (08:22)
[2020-07-08] MEDS: Magnesium Hydroxide LIQ 30 ML UDC PO SCH (08:25)
== END 2020-07-08 09:00 | disposition home or self-care (01) | DRG 470 ==
LOC: OR 06:18 → SSU 06:18
PROVIDERS: ADMIT Orthopaedic Surgery Adult Reconstructive Orthopaedic Surgery; ATTEND Orthopaedic Surgery Adult Reconstructive Orthopaedic Surgery

== ENCOUNTER 2024-08-04 14:43 | Observation (INO) ==
[2024-08-04 16:02] LABS: ABS Eosinophils 0.2 10^3/uL (0.0-0.5); ABS Monocytes 0.6 10^3/uL (0.0-0.9); ABS Neutrophils 2.8 10^3/uL (1.5-7.6); Hematocrit 35.4 % (35-45); Mean Corpuscular Hemoglobin 31.1 pg (27-33); Mean Corpuscular Hgb Conc 33.8 g/dL (31-36); Mean Corpuscular Volume 92.2 fL (80-97); Mean Platelet Volume 8.1 fL (7.5-11.2); Platelet Count 134 10^3/uL (150-450); Red Blood Count 3.84 10^6/uL (3.63-4.92); Red Cell Distribution Width 13.6 % (12-17); White Blood Count 5.7 10^3/uL (3.8-11.8)
[2024-08-04 16:42] LABS: Albumin 4.3 g/dL (3.2-5.2); Calcium 9.8 mg/dL (8.6-10.3); Creatinine, Serum 1.45 mg/dL (0.51-0.95); Globulin 2.2 g/dL (2-4); Potassium 4.1 mmol/L (3.5-5.0); Total Bilirubin 1.5 mg/dL (0.2-1.0); Total Protein 6.5 g/dL (6.4-8.9)
[2024-08-04 17:57] LABS: HDL Cholesterol 55.7 mg/dL
[2024-08-04 18:10] LABS: TSH Ultra Thyroid Stim Horm 2.22 mcIU/mL (0.34-5.60)
[2024-08-04 18:19] LABS: Direct Bilirubin 0.2 mg/dL (0.03-0.18); Indirect Bilirubin 1.3 mg/dL (0.3-1.0)
[2024-08-04 18:21] LABS: Folate 10.83 ng/mL (5.90-24.80)
[2024-08-04] MEDS: Gadoteridol (CONTRAST) 279.3 MG/ML 10 ML IV ONE (23:35)
[2024-08-05 06:48] LABS: ABS Eosinophils 0.2 10^3/uL (0.0-0.5); ABS Lymphocytes 1.3 10^3/uL (1.0-4.8); ABS Monocytes 0.7 10^3/uL (0.0-0.9); ABS Neutrophils 2.2 10^3/uL (1.5-7.6); Eosinophil % 4.3 %; Hematocrit 29.1 % (35-45); Hemoglobin 10.3 g/dL (11.5-14.3); Lymphocyte % 29.9 %; Mean Corpuscular Hemoglobin 32.2 pg (27-33); Mean Corpuscular Hgb Conc 35.5 g/dL (31-36); Mean Corpuscular Volume 90.6 fL (80-97); Mean Platelet Volume 8.5 fL (7.5-11.2); Nucleated Red Blood Cells % 0.1 %/100WBC (0.0-0.8); Platelet Count 109 10^3/uL (150-450); Red Blood Count 3.22 10^6/uL (3.63-4.92); Red Cell Distribution Width 13.5 % (12-17); White Blood Count 4.4 10^3/uL (3.8-11.8)
[2024-08-05 07:13] LABS: Albumin 3.6 g/dL (3.2-5.2); Albumin/Globulin Ratio 1.9 (1-3); Creatinine, Serum 1.45 mg/dL (0.51-0.95); Globulin 1.9 g/dL (2-4); Magnesium 1.9 mg/dL (1.9-2.7); Potassium 3.8 mmol/L (3.5-5.0); Total Bilirubin 0.8 mg/dL (0.2-1.0); Total Protein 5.5 g/dL (6.4-8.9)
[2024-08-05] MEDS: Cholecalciferol (VIT D3) 1,000 unit TAB PO SCH (10:12)
[2024-08-05] MEDS: CMCS:Mirabegron 25 mg ER TAB (NF) PO SCH (10:52)
[2024-08-05 13:51] VITALS: BP 150/76
[2024-08-05] MEDS ORDERED: Heparin 5000 UNITS/ML 1 mL VIAL SUBCUT SCH (22:00)
== END 2024-08-05 14:31 | disposition home or self-care (01) ==
LOC: EDHOLD 14:43 → ED 14:43 → SUATTDRO 16:07 → MED 17:12
PROVIDERS: ADMIT Student in an Organized Health Care Education/Training Program; ATTEND Student in an Organized Health Care Education/Training Program